=== PATIENT | female | born 1950 | race Caucasian/White ===

== ENCOUNTER 2021-04-18 09:09 | Emergency (ER) | payer OTHER, MEDICARE ==
[2021-04-18] MEDS ORDERED: HYDROcodone/Acetaminophen 5/325 mg Tablet ONE (12:13)
== END 2021-04-18 12:22 | disposition home or self-care (01) ==
LOC: ERS 09:09
DX: S92.331A Displaced fracture of third metatarsal bone, right foot, initial encounter for closed fracture (principal); S92.341A Displaced fracture of fourth metatarsal bone, right foot, initial encounter for closed fracture; S92.351A Displaced fracture of fifth metatarsal bone, right foot, initial encounter for closed fracture; S92.311A Displaced fracture of first metatarsal bone, right foot, initial encounter for closed fracture; E03.9 Hypothyroidism, unspecified; E78.5 Hyperlipidemia, unspecified; E78.00 Pure hypercholesterolemia, unspecified; Z86.73 Personal history of transient ischemic attack (TIA), and cerebral infarction without residual deficits; Z79.899 Other long term (current) drug therapy; Z79.82 Long term (current) use of aspirin; W01.0XXA Fall on same level from slipping, tripping and stumbling without subsequent striking against object, initial encounter

== ENCOUNTER 2023-01-18 04:43 | Observation (INO) | payer MEDICARE ==
[2023-01-18] MEDS ORDERED: Aspirin 325 MG TAB ONE (05:19)
[2023-01-18 05:23] LABS: #Basophils 0.1 thou/uL (0.0-0.2); #Eosinphils 0.2 thou/uL (0.0-0.7); #Lymphocytes 1.4 thou/uL (1.20-3.40); #Monocytes 0.4 thou/uL (0.11-0.59); #Neutrophils 2.5 thou/uL (1.40-6.50); %Basophils 1.9 % (0.0-1.0); %Eosinophils 4.3 % (0.0-10.0); %Lymphocytes 30.3 % (21.0-51.0); %Neutrophils 55.6 % (42.0-75.0); Hemoglobin 13.9 g/dL (12.0-16.0); Mean Corpuscular HGB CONC 33.4 g/dL (32.0-36.0); Mean Corpuscular Hemoglobin 31.2 pg (27.0-31.0); Mean Corpuscular Volume 93.6 fl (78.0-98.0); Mean Platelet Volume 8.3 fL (7.4-10.4); Platelet Count 215 10x3/uL (130-400); Red Blood Cell (RBC) Count 4.45 mill/uL (4.20-5.40); White Blood Cell (WBC) Count 4.5 10x3/uL (4.8-10.8)
[2023-01-18 05:42] LABS: ALT (SGPT) 12 U/L (8-55); AST (SGOT) 24 U/L (5-34); Albumin 4.2 g/dL (3.4-4.8); Alkaline Phosphatase 69 U/L (40-110); Anion Gap 11 mmol/L (10-20); BUN (Urea Nitrogen) 15 mg/dL (9.8-20.1); Bilirubin, Total 0.4 mg/dL (0.2-1.2); Calc. Creatinine Clearance 0 mL/min (70-130); Calcium 9.3 mg/dL (7.8-10.44); Carbon Dioxide 29 mmol/L (23-31); Chloride 104 mmol/L (98-107); Estimated GFR 82; Globulin 2.4 g/dL (2.4-3.5); Glucose 96 mg/dL (83-110); Potassium 4.5 mmol/L (3.5-5.1); Protein, Total 6.6 g/dL (5.8-8.1); Sodium 139 mmol/L (136-145)
[2023-01-18 08:04] LABS: Troponin I Less than 0.010 ng/mL (< 0.028)
[2023-01-18 08:23] LABS: SARS-CoV-2 NAA Rapid Test Not Detected (NotDetected)
[2023-01-18] MEDS ORDERED: Nitroglycerin 0.4 MG TAB (25 Tab Bottle) SL PRN (08:40)
[2023-01-18] MEDS ORDERED: Ondansetron ODT 4 MG TAB PO PRN (08:43)
[2023-01-18] MEDS ORDERED: Senokot S 8.6-50 MG TAB PO PRN (08:43)
[2023-01-18] MEDS ORDERED: Ondansetron PF 4 MG/2 ML Vial IVP PRN (08:43)
[2023-01-18] MEDS ORDERED: Sodium Chloride 0.9% 1,000 ML IV SCH (08:45)
[2023-01-18 14:30] LABS: Troponin I Less than 0.010 ng/mL (< 0.028)
[2023-01-18 15:45] VITALS: BMI 27.8
[2023-01-18] MEDS ORDERED: Calcium Carbonate 500 MG ChewTAB PO SCH (19:01)
[2023-01-18] MEDS ORDERED: Atorvastatin Calcium 10 MG TAB PO SCH (21:00)
[2023-01-18] MEDS ORDERED: Acetaminophen 325 MG TAB PO PRN (22:59)
[2023-01-19 05:32] LABS: #Basophils 0.1 thou/uL (0.0-0.2); #Eosinphils 0.2 thou/uL (0.0-0.7); #Lymphocytes 1.4 thou/uL (1.20-3.40); #Monocytes 0.4 thou/uL (0.11-0.59); #Neutrophils 2.2 thou/uL (1.40-6.50); %Basophils 2.2 % (0.0-1.0); %Eosinophils 3.9 % (0.0-10.0); %Monocytes 9.9 % (0.0-10.0); %Neutrophils 51.1 % (42.0-75.0); Hemoglobin 13.5 g/dL (12.0-16.0); Mean Corpuscular Volume 93.7 fl (78.0-98.0); Mean Platelet Volume 8.3 fL (7.4-10.4); Platelet Count 188 10x3/uL (130-400); Red Blood Cell (RBC) Count 4.36 mill/uL (4.20-5.40); White Blood Cell (WBC) Count 4.2 10x3/uL (4.8-10.8)
[2023-01-19 05:51] LABS: Anion Gap 12 mmol/L (10-20); BUN (Urea Nitrogen) 15 mg/dL (9.8-20.1); Calc. Creatinine Clearance 97 mL/min (70-130); Calcium 9.5 mg/dL (7.8-10.44); Carbon Dioxide 24 mmol/L (23-31); Chloride 105 mmol/L (98-107); Estimated GFR 92; Glucose 94 mg/dL (83-110); Sodium 137 mmol/L (136-145)
[2023-01-19] MEDS ORDERED: Levothyroxine 150 MCG TAB PO SCH (06:00)
[2023-01-19] MEDS ORDERED: Aspirin Chewable 81 MG TAB PO SCH (09:00)
[2023-01-19] MEDS ORDERED: Sertraline 100 MG TAB PO SCH (09:00)
[2023-01-19] MEDS ORDERED: Regadenoson 0.4 MG/5 ML SYRINGE ONE (10:27)
[2023-01-19 13:08] VITALS: TEMP 97.8
[2023-01-19 13:21] VITALS: BP 122/59
== END 2023-01-19 14:20 | disposition home or self-care (01) ==
LOC: ERS 04:43 → SUATTDRO 04:43 → ERHOLD 07:42 → 2SW 15:19
PROVIDERS: ADMIT Family Medicine; ATTEND Family Medicine
DX: R07.89 Other chest pain (principal); E03.9 Hypothyroidism, unspecified; E78.5 Hyperlipidemia, unspecified; I10 Essential (primary) hypertension; Z86.73 Personal history of transient ischemic attack (TIA), and cerebral infarction without residual deficits; Z79.82 Long term (current) use of aspirin; Z79.890 Hormone replacement therapy; Z79.899 Other long term (current) drug therapy; Z88.2 Allergy status to sulfonamides; Z88.5 Allergy status to narcotic agent; Z20.822 Contact with and (suspected) exposure to COVID-19
CPT/HCPCS: 71045; 78452; 80048; 80053; 83880; 84484 ×2; 85025 ×2; 85379; 93005; 93017; 94760; 99285; A9500; G0378 ×3; U0002; 36415; J2785; J7050